=== PATIENT | male | born 1995 | race African-American/Black ===

== ENCOUNTER → 2021-10-01 | Outpatient (CLI) | payer BC ==
--- NOTE | 2021-10-01 12:51 | RAD ---
EXAM: Right long finger, 3 views. HISTORY: Laceration. COMPARISON: None. FINDINGS: 3 views of the right long finger are obtained. There is bandage material overlying the thir d phalanx. There is soft tissue swelling involving the distal aspect of the third phalanx. There is a tiny radiodensity along the palmar aspect of the third phalanx at the level of the distal interphala ngeal joint and along the radial aspect of the distal phalanx, both of which are likely on the skin s urface or associated or associated with overlying bandage material. Evaluation for a foreign body is limited due to external bandage material. IMPRESSION: Soft tissue swelling involving the third phalanx. No fracture is seen. Electronically signed by: Keerthi Strickland MD (10/01/2021 12:49 PM) [facility]
== END ==
LOC: RAD 12:17
PROVIDERS: ATTEND Physician Assistant
DX: S61.312A Laceration without foreign body of right middle finger with damage to nail, initial encounter (principal); S67.10XA Crushing injury of unspecified finger(s), initial encounter; M79.89 Other specified soft tissue disorders; X58.XXXA Exposure to other specified factors, initial encounter; Y93.89 Activity, other specified; Y92.89 Other specified places as the place of occurrence of the external cause; Y99.8 Other external cause status
CPT/HCPCS: 73140